=== PATIENT | female | born 1995 | race Caucasian/White ===

== ENCOUNTER 2018-08-29 08:41 | Emergency (ER) | payer BC, OTHER ==
--- NOTE | 2018-08-29 09:08 | EDPHY ---
H & P Stated Complaint: LLQ pain starting a few days ago, getting progressiely worse Time Seen by Provider: 08/29/18 08:58 HPI/ROS: HPI: This is a 23-year-old female who presents with Chief Complaint: LLQ pain starting a few days ago, getting progressiely worse Location: Left lower quadrant Quality: Pain Duration: Since last night Signs and Symptoms: no fever, + nausea, no vomiting, no hematemesis, no blood in stool, no abdominal bloating, no diarrhea, no back pain, no urinary symptoms , no vaginal bleeding/discharge, no indigestion, no chest pain, no shortness of breath Timing: Rapid onset, worsening Severity: Moderate Context: Patient reports yesterday evening around 10-11 p.m. She started to developed left lower quadrant pain that initially wax and wane was cramping in nature and now has become constant and moderate in intensity. She reports that she has had several loose stools since yesterday. She has some nausea but no vomiting, fever, urinary symptoms, abdominal bloating, blood in her stool. Last menstrual period was approximately 2 months ago which is not abnormal for the patient. Takes oral control pills. She reports that she has an appointment with an OBGYN at the clinic here around 10:45 p.m. But the pain became so intense that she could not wait and came to the emergency room for further evaluation. She does take oral control pills. She has been in a monogamous relationship for the last 4 years. She denies any concern for sexually transmitted infections and denies vaginal bleeding or vaginal discharge. Modifying Factors: None Comment: ROS: A comprehensive 10 system review of systems is otherwise negative aside from elements mentioned in the history of present illness. MEDICAL/SURGICAL/SOCIAL HISTORY: Medical history: Left PERITONSILLAR ABSCESS, ACID REFLUX. 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 Denies tobacco use. Family history noncontributory. CONSTITUTIONAL: Nontoxic-appearing extremely well-appearing young adult white female, awake and alert, no obvious distress HEENT: Atraumatic and normocephalic, PERRL, EOMI. Nares patent; no rhinorrhea; no nasal mucosal edema. Tympanic membranes clear. Oropharynx clear, no exudate and moist pink mucosa. Airway patent. No lymphadenopathy. No meningismus. Cardiovascular: Normal S1/S2, regular rate, regular rhythm, without murmur rub or gallop. PULMONARY/CHEST: Symmetrical and nontender. Clear to auscultation bilaterally. Good air movement. No accessory muscle usage. ABDOMEN: Soft, nondistended, mild left lower quadrant tenderness to deep palpation, no rebound, no guarding, no peritoneal signs, no masses or organomegaly. No CVAT. EXTREMITIES: 2/2 pulses, strength 5/5, no deformities, no clubbing, no cyanosis or edema. NEUROLOGICAL: no focal neuro deficits. GCS 15. SKIN: Warm and dry, no erythema. no rash. Good capillary refill. Source: Patient Exam Limitations: No limitations - Personal History LMP (Females 10-55): Extended Cycle BCP/Inj Current Tetanus/Diphtheria Vaccine: Yes Current Tetanus Diphtheria and Acellular Pertussis (TDAP): Yes Tetanus Vaccine Date: < 10 years - Medical/Surgical History Hx Asthma: No Hx Chronic Respiratory Disease: No Hx Diabetes: No Hx Cardiac Disease: No Hx Renal Disease: No Hx Cirrhosis: No Hx Alcoholism: No Hx HIV/AIDS: No Hx Splenectomy or Spleen Trauma: No Other PMH: L PERITONSILAR ABSCESS, ACID REFLUX - Social History Smoking Status: Never smoked Constitutional: Initial Vital Signs Temperature (C) 36.9 C 08/29/18 08:43 Heart Rate 71 08/29/18 08:43 Respiratory Rate 18 08/29/18 08:43 Blood Pressure 109/83 H 08/29/18 08:43 O2 Sat (%) 96 08/29/18 08:43 O2 Delivery Mode Room Air Allergies/Adverse Reactions: Penicillins Allergy (Verified 08/29/18 08:43) Home Medications: Medication Instructions Recorded NK [No Known Home Meds] 01/11/15 Medical Decision Making - Diagnostics Imaging Results: Imaging Impressions Pelvic/Renal Ultrasound 08/29/18 09:01 Impression: Normal ultrasound pelvis. Findings and recommendations discussed with Emergency Department physician, Robyn HOLLINS at 10:08 hour, 08/29/2018. Final report concurs with initial preliminary interpretation. ED Course/Re-evaluation: Signs reviewed and stable upon arrival. No systemic signs. IV access, laboratory studies, urinalysis, pelvic ultrasound ordered 922: Laboratory studies reviewed. No signs of leukocytosis/anemia/platelet dysfunction/REBECCA/elevated LFTs/electrolyte imbalance/pancreatitis/. 1000: Urinalysis unremarkable 1005: Called by radiologist, Dr. Kimball, regarding Pelvic ultrasound shows small left ovarian simple cyst. No signs of ectopic , ovarian torsion. Patient reports that she has an appointment tomorrow with [facility]. She reports her pain is very mild at this time and politely declines any pain medications. This patient was seen under the supervision of my primary supervising physician. I evaluated care for this patient independently. Differential Diagnosis: Abdominal pain in a female including but not limited to ovarian cyst, pelvic inflammatory disease, ovarian torsion, urinary tract infection, and appendicitis. - Data Points Laboratory Results: Laboratory Results 08/29/18 08:56 08/29/18 08:56 08/29/18 08/29/18 08/29/18 09:45 08:56 08:56 WBC RBC Hgb Hct MCV MCH MCHC RDW Plt Count MPV Neut % (Auto) Lymph % (Auto) [place] % (Auto) Eos % (Auto) Baso % (Auto) Nucleat RBC Rel Count Absolute Neuts (auto) Absolute Lymphs (auto) Absolute Monos (auto) Absolute Eos (auto) Absolute Basos (auto) Absolute Nucleated RBC Immature Gran % Immature Gran # Sodium 139 mEq/L mEq/L (135-145) Potassium 4.4 mEq/L mEq/L (3.5-5.2) Chloride 103 mEq/L mEq/L (97-110) Carbon Dioxide 23 mEq/l mEq/l (22-31) Anion Gap 13 mEq/L mEq/L (6-14) BUN 11 mg/dL mg/dL (7-23) Creatinine 0.7 mg/dL mg/dL (0.6-1.0) Estimated GFR > 60 Glucose 108 mg/dL H mg/dL (70-100) Calcium 10.0 mg/dL mg/dL (8.5-10.4) Total Bilirubin 0.7 mg/dL mg/dL (0.1-1.4) Conjugated Bilirubin 0.3 mg/dL mg/dL (0.0-0.5) Unconjugated Bilirubin 0.4 mg/dL mg/dL (0.0-1.1) AST 21 IU/L IU/L (14-46) ALT 41 IU/L IU/L (9-52) Alkaline Phosphatase 72 IU/L IU/L (38-126) Total Protein 7.7 g/dL g/dL (6.3-8.2) Albumin 4.9 g/dL g/dL (3.5-5.0) Lipase 57 IU/L IU/L (23-300) Beta HCG, Qual NEGATIVE Urine Color YELLOW Urine Appearance CLEAR Urine pH 7.0 (5.0-7.5) Ur Specific [place] 1.013 (1.002-1.030) Urine Protein NEGATIVE (NEGATIVE) Urine Ketones NEGATIVE (NEGATIVE) Urine Blood NEGATIVE (NEGATIVE) Urine Nitrate NEGATIVE (NEGATIVE) Urine Bilirubin NEGATIVE (NEGATIVE) Urine Urobilinogen NEGATIVE EU EU (0.2-1.0) Ur Leukocyte Esterase NEGATIVE (NEGATIVE) Urine Glucose NEGATIVE (NEGATIVE) 08/29/18 08:56 WBC 8.81 10^3/uL 10^3/uL (3.80-9.50) RBC 5.07 10^6/uL 10^6/uL (4.18-5.33) Hgb 15.9 g/dL g/dL (12.6-16.3) Hct 47.2 % H % (38.0-47.0) MCV 93.1 fL fL (81.5-99.8) MCH 31.4 pg pg (27.9-34.1) MCHC 33.7 g/dL g/dL (32.4-36.7) RDW 11.9 % % (11.5-15.2) Plt Count 267 10^3/uL 10^3/uL (150-400) MPV 9.8 fL fL (8.7-11.7) Neut % (Auto) 58.6 % % (39.3-74.2) Lymph % (Auto) 28.0 % % (15.0-45.0) Hopkins % (Auto) 9.3 % % (4.5-13.0) Eos % (Auto) 3.2 % % (0.6-7.6) Baso % (Auto) 0.7 % % (0.3-1.7) Nucleat RBC Rel Count 0.0 % % (0.0-0.2) Absolute Neuts (auto) 5.16 10^3/uL 10^3/uL (1.70-6.50) Absolute Lymphs (auto) 2.47 10^3/uL 10^3/uL (1.00-3.00) Absolute Monos (auto) 0.82 10^3/uL H 10^3/uL (0.30-0.80) Absolute Eos (auto) 0.28 10^3/uL 10^3/uL (0.03-0.40) Absolute Basos (auto) 0.06 10^3/uL 10^3/uL (0.02-0.10) Absolute Nucleated RBC 0.00 10^3/uL 10^3/uL (0-0.01) Immature Gran % 0.2 % % (0.0-1.1) Immature Gran # 0.02 10^3/uL 10^3/uL (0.00-0.10) Sodium Potassium Chloride Carbon Dioxide Anion Gap BUN Creatinine Estimated GFR Glucose Calcium Total Bilirubin Conjugated Bilirubin Unconjugated Bilirubin AST ALT Alkaline Phosphatase Total Protein Albumin Lipase Beta HCG, Qual Urine Color Urine Appearance Urine pH Ur Specific [place] Urine Protein Urine Ketones Urine Blood Urine Nitrate Urine Bilirubin Urine Urobilinogen Ur Leukocyte Esterase Urine Glucose Departure - Departure Disposition: Home, Routine, Self-Care Clinical Impression: Simple ovarian cyst Condition: Good Instructions: Ovarian Cyst (ED) Additional Instructions: Consume a minimum of 8-10 glasses of water or electrolyte fluid replacement drinks that include Gatorade, Powerade, Pedialyte. Take Tylenol 650 mg every 4 hours and/or Ibuprofen 600 mg every 8 hours with food as needed for pain. Apply heating pad for 30 minutes at a time; 2-3 times per day for the next 1-2 days. Keep follow-up appointment with OBGYN tomorrow. Referrals: Blanca Bell MD [Medical Doctor] - As per Instructions
[2018-08-29 09:11] LABS: PLATELET COUNT 267 10^3/uL (150-400)
[2018-08-29 10:14] VITALS: BP 110/79
== END 2018-08-29 10:23 | disposition home or self-care (01) ==
DX: N83.202 Unspecified ovarian cyst, left side (principal); Z88.0 Allergy status to penicillin